=== PATIENT | female | born 1970 | race Hispanic/Latino ===

== ENCOUNTER 2017-09-27 15:57 | Emergency (ER) | payer SELFPAY ==
[2017-09-27] MEDS ORDERED: predniSONE 20 MG TAB ONE (16:20)
--- NOTE | 2017-09-27 16:35 | RAD ---
SINGLE VIEW OF THE CHEST: 09/27/17 COMPARISON: HISTORY: Shortness of breath that started yesterday. History of asthma. FINDINGS: Single view of the chest shows a normal sized cardiomediastinal silhouette. There is no evidence of c onsolidation, mass, or pleural effusion. The bones are unremarkable. IMPRESSION: No evidence of acute cardiopulmonary disease. POS: [facility]
== END 2017-09-27 17:52 | disposition home or self-care (01) ==
LOC: ERS 15:57
DX: J45.901 Unspecified asthma with (acute) exacerbation (principal); E03.9 Hypothyroidism, unspecified; F32.9 Major depressive disorder, single episode, unspecified
CPT/HCPCS: 71045; 94640; J7506; J7620

== ENCOUNTER 2024-01-02 20:41 | Emergency (ER) | payer SELFPAY | END 2024-01-02 21:18 | disposition home or self-care (01) | LOC: ERS 20:41 | DX: L03.312 Cellulitis of back [any part except buttock and flank] (principal) | CPT/HCPCS: 99282 ==